=== PATIENT | female | born 1930 | race Caucasian/White ===

== ENCOUNTER 2017-01-26 23:22 | Emergency (ER) | payer MEDICARE ==
[~2017-01-26] VITALS: Ht 157.5 cm; Wt 72.7 kg
[~2017-01-26 23:22] MED LIST: ALPHAGAN5 ML OP; AUGMENTIN875TAB PO; BACLOFEN10 MG PO; CYANOCOBALAM1000 MCG IJ; CYANOCOBALAM1000 MCG IM; ESTER-C500 M1 OR; ESTRACE VAG0.1 MG/GM VA; GABAPENTIN100 MG PO; LORTAB 10-325 M1 TAB PO; MOBIC7.5 M1 PO; MULT VITAMI1 OR; NAPROSYN500 MG PO; VIT B12 SL; VITAMIN B-121000 MC1 IM; [UNRECOGNIZED DRUG - OTHER] PO
[2017-01-27] MEDS ORDERED: LORTAB 10-325 M1 TAB PO (01:57)
[2017-01-27 02:35] VITALS: BP 179/81
== END 2017-01-27 02:30 | disposition home or self-care (01) ==
LOC: ED 23:22
DX: S42.434A Nondisplaced fracture (avulsion) of lateral epicondyle of right humerus, initial encounter for closed fracture (principal); W01.0XXA Fall on same level from slipping, tripping and stumbling without subsequent striking against object, initial encounter; Y93.K1 Activity, walking an animal; Y92.007 Garden or yard of unspecified non-institutional (private) residence as the place of occurrence of the external cause

== ENCOUNTER 2019-12-09 04:21 | Observation (INO) | payer MEDICARE ==
[~2019-12-09] VITALS: Ht 162.6 cm; Wt 58.5 kg
--- NOTE | 2019-12-09 04:28 | NUR ---
PATIENT TO ROOM 13 VIA WHEELCHAIR. UNDRESSED INTO A GOWN. PLACED ON MONITOR. TRIAGE COMPLETED AT BEDSIDE. AWAITING MD VICKERS.
[2019-12-09] MEDS ORDERED: DONEPEZIL10 MG PO (04:51)
--- NOTE | 2019-12-09 04:51 | NUR ---
PT TOLD SAMY SHE ONLY TOOK VITAMINS. WHEN SAMY LEFT ROOM SHE SAID SHE TAKES A MEMORY PILL BUT NOT SURE WHICH ONE. PER MEDICAL HISTORY, PT PRESCRIBED ARICEPT. ADDED TO MED LIST.
--- NOTE | 2019-12-09 05:10 | NUR ---
PT'S BP DROPPED TO 169/86, DR HARGROVE INFORMED, CATAPRES HELD. PT STATES PAIN IS 2/10 PRIOR TO APPLYING NTG PASTE TO CHEST WALL. CALL RATLIFF IN REACH.
[2019-12-09 05:21] LABS: HEMATOCRIT 41.4 % (37.0-47.0); HEMOGLOBIN 14.2 g/dl (12.0-16.0); IMMATURE GRANULOCYTES 0.2 % (0.0-5.0); MEAN CELL VOLUME 93.9 fL CALC (80.0-100.0); MEAN CORPUSCULAR HGB 32.2 pG CALC (26.0-32.0); MEAN CORPUSCULAR HGB CONC 34.3 g/dL CAL (32.0-36.0); NEUT# 3.42 thou/uL (2.00-7.15); RED BLOOD COUNT 4.41 mill/uL (4.20-5.60); RED CELL DISTRI WIDTH 12.5 % (11.5-15.5)
[2019-12-09 05:34] LABS: ALBUMIN 4.2 g/dL (3.2-5.0); ALKALINE PHOSPHATASE 57 u/l (38-126); AMYLASE 63 u/l (30-110); ANION GAP 9 (6-22 (CALC)); BILIRUBIN, TOTAL 0.7 mg/dL (0.0-1.4); BUN 13 mg/dL (8-23); BUN/CREATININE RATIO 20 (12-20 (CALC)); CARBON DIOXIDE 29 mmol/l (22-30); CHLORIDE 97 mmol/l (95-108); CREATININE 0.7 mg/dL (0.5-1.0); GFR > 60 ML/MIN (>=60 (CALC)); GFR FOR AFR.AMER. > 60 ML/MIN (>=60 (CALC)); LIPASE 55 u/l (23-300); POTASSIUM 3.6 mmol/l (3.5-5.1); SGOT/AST 27 u/l (9-36); SODIUM 131 mmol/l (137-146); TOTAL PROTEIN 7.2 g/dL (6.3-8.2)
[2019-12-09 05:40] LABS: ACT PARTIAL THROMBO TIME 28.5 SECONDS (20.0-32.5); D-DIMER 0.6 mg/L (0.19-0.60)
[2019-12-09 05:46] LABS: MYOGLOBIN 38 ng/mL (0 - 62)
--- NOTE | 2019-12-09 06:10 | NUR ---
ROOM NUMBER RECEIVED , CALLED FLOOR TO GIVE REPORT, NURSE IN WITH PT.
--- NOTE | 2019-12-09 06:25 | NUR ---
CALLED FLOOR AGAIN TO GIVE REPORT. TOLD ONCE AGAIN NURSE IN ROOM CAN HE CALL BACK.
--- NOTE | 2019-12-09 06:34 | NUR ---
Admission Note Report Given to: PATRICIA MORA Transported by: X Wheelchair Stretcher Transported with: X Nurse Transporter Patent IV O2 X Heating Mechanic Location: ICU X [facility]
--- NOTE | 2019-12-09 06:42 | NUR ---
PER STAFF PT ARRIVED VIA STRETCHER WITH IV SITE AND TELE MONITOR IN PLACE.
--- NOTE | 2019-12-09 06:45 | NUR ---
WHEELED PT TO ROOM 273, DROPPED PT'S PAPERS OFF AT NURSES STATION WHERE MORGAN WAS SITTING. WHEELED PT INTO ROOM, NO SCALE THERE OR I WOULD HAVE OBTAINED WEIGHT. ASSISTED PT TO BED, SHOWED HER CALL RATLIFF AND HOW TO ADJUST BED. THEN PT STATES SHE HAD TO URINATE. ASSISTED PT TO BATHROOM AND INSTRUCTED PT TO PULL RED CORD WHEN DONE. WHEELED PAST NURSES STATION AND INFORMED MORGAN WHAT I DID AND THAT PT WAS IN BATHROOM..
[2019-12-09 06:50] VITALS: BP 168/82
--- NOTE | 2019-12-09 08:45 | NUR ---
ASSESSMENT IS COMPLETED: IV SITE IS FREE FROM REDNESS OR EDEMA. HR IS REG,PULSES ARE STRONG X4, ABD IS SOFT WITH ACTIVE BS. BREATH SOUNDS ARE CLEAR,BILATERALLY, TELE MONITOR IN PLACE. CONTINUE TO OSBERVE AND MONITOR.
[2019-12-09 10:37] VITALS: BP 129/74
--- NOTE | 2019-12-09 12:00 | NUR ---
PT IS RELAXING IN BED WITH NO DISTRESS NOTED. IV SITE IS FREE FROM REDNESS OR EDEMA.
[2019-12-09 15:24] VITALS: BP 135/81
--- NOTE | 2019-12-09 16:00 | NUR ---
PT IS RELAXING IN BED . NO DISTRESS NOTED. IV SITE IS FREE FROM REDNESS OR EDEMA. CONTINUE TO OBSERVE AND MONITOR.
[2019-12-09 19:44] VITALS: BP 141/77
--- NOTE | 2019-12-09 19:45 | NUR ---
PHYSICAL ASSESMENT COMPLETE. VS TAKEN BY PEDIATRIC DENTAL HYGIENIST @ 1944 ASSESSED, TELEMETRY READING FOR 1999 FROM ED PHARMACEUTICAL SALES REPRESENTATIVE ASSESSED. PT HEMODYNAMICALLY STABLE. PLAN OF CARE REVIEWED W/ PT. PT VERBALIZES UNDERSTANDING AND DENIES QUESTIONS @ THIS TIME. PT DENIES NEEDS @ THIS TIME. CALL RATLIFF WITHIN REACH, AGREES TO CALL PRN. ITEMS WITHIN REACH. BED LOCKED IN LOW POSITION W/ BEDRAILS UP X2. WILL CON'T TO MONITOR.
[2019-12-09 23:47] VITALS: BP 147/83
--- NOTE | 2019-12-10 00:30 | NUR ---
PT STATES HER IV IS VERY UNCOMFORTABLE AND KEEPING HER FROM SLEEPING. SHE REQUESTS IV BE REMOVED @ THIS TIME AND LEFT OUT BECAUSE ITS NOT IN USE FOR MEDICATION. PT AGREES TO ALLOW RE-INSERTION OF IV IF MEDICALLY NECESSARY. R AC IV site discontinued, cath intact. No edema , no redness, voices no discomfort.
--- NOTE | 2019-12-10 00:37 | NUR ---
PHYSICAL ASSESMENT COMPLETE. VS TAKEN BY HUMAN SERVICES SUPERVISOR @ 1944 ASSESSED, TELEMETRY READING FOR 1999 FROM ED TEST HOLE DRILLER ASSESSED. PT HEMODYNAMICALLY STABLE. PLAN OF CARE REVIEWED W/ PT. PT VERBALIZES UNDERSTANDING AND DENIES QUESTIONS @ THIS TIME. PT DENIES NEEDS @ THIS TIME. CALL RATLIFF WITHIN REACH, AGREES TO CALL PRN. ITEMS WITHIN REACH. BED LOCKED IN LOW POSITION W/ BEDRAILS UP X2. WILL CON'T TO MONITOR.
[2019-12-10 03:52] VITALS: BP 137/80
[2019-12-10 04:48] LABS: CHOLESTEROL HDL RATIO 3.2 (<4.4 (CALC))
--- NOTE | 2019-12-10 05:28 | NUR ---
PHYSICAL ASSESMENT REMAINS UNCHANGED FROM START OF SHIFT. VS TAKEN BY WEAVER WIRE LOOM @ 0352 ASSESSED. TELEMETRY READING REPORTED ED RAIL CAR DRIVER ASSESSED. PT REMAINS HEMODYNAMICALLY STABLE. RESTING IN BED COMFORTABLY @ THIS TIME. DENIES NEEDS @ THIS TIME. ITEMS WITHIN REACH. BED REMAINS LOCKED IN LOW POSITION W/ BED RAILS UPX2. CALL RATLIFF REMAINS WITHIN REACH. PT AGREES TO CALL PRN.
[2019-12-10 08:14] VITALS: BP 141/82
--- NOTE | 2019-12-10 08:14 | NUR ---
PT AMBULATING IN ROOM, NO SIGNS OF DISTRESS NOTED, RESP EVEN AND UNLABORED. NO IV AT THIS TIME, PT REMOVED TELE. PT EAGER TO BE DISCHARGED. PT DENIES ANY CP AT THIS TIME. ASSESSMENT COMPLETED, CALL LIGHT IN REACH,CONTINUE TO MONITOR.
--- NOTE | 2019-12-10 10:46 | NUR ---
DISCUSSED DISCHARGE INSTRUCTIONS, PT VERBALIZED UNDERSTANDING. PAPERWORK SIGNED. DAUGHTER ON HER WAY TO PICK PT UP.
--- NOTE | 2019-12-10 11:03 | NUR ---
Discharge instructions given. Patient verbalizes understanding of same. Discharged in stable condition via Ambulatory to Home with family. All belongings sent with pt.
== END 2019-12-10 11:03 | disposition home or self-care (01) ==
LOC: ED 04:21 → ED-I 05:54 → ED 06:08 → MS2 06:08
PROVIDERS: Family Medicine; ADMIT Internal Medicine; ATTEND Internal Medicine
DX: R07.9 Chest pain, unspecified (principal); K21.9 Gastro-esophageal reflux disease without esophagitis; R03.0 Elevated blood-pressure reading, without diagnosis of hypertension; G62.9 Polyneuropathy, unspecified; Z20.828 Contact with and (suspected) exposure to other viral communicable diseases; R06.02 Shortness of breath
CPT/HCPCS: G0378; J1650

== ENCOUNTER 2020-04-30 14:50 | Emergency (ER) | payer MEDICARE ==
[~2020-04-30] VITALS: Ht 162.6 cm; Wt 51.0 kg
[~2020-04-30 14:50] MED LIST changes: +DONEPEZIL10 MG PO
[2020-04-30 15:53] LABS: HEMATOCRIT 39.1 % (37.0-47.0); HEMOGLOBIN 12.9 g/dl (12.0-16.0); IMMATURE GRANULOCYTES 0.2 % (0.0-5.0); MEAN CELL VOLUME 96.3 fL CALC (80.0-100.0); MEAN CORPUSCULAR HGB 31.8 pG CALC (26.0-32.0); NEUT# 3.82 thou/uL (2.00-7.15); RED BLOOD COUNT 4.06 mill/uL (4.20-5.60); RED CELL DISTRI WIDTH 12.3 % (11.5-15.5)
[2020-04-30 16:12] LABS: ALBUMIN 3.8 g/dL (3.2-5.0); ALKALINE PHOSPHATASE 50 u/l (38-126); ANION GAP 8 (6-22 (CALC)); BUN 13 mg/dL (8-23); BUN/CREATININE RATIO 17 (12-20 (CALC)); CARBON DIOXIDE 30 mmol/l (22-30); CHLORIDE 98 mmol/l (95-108); CREATININE 0.8 mg/dL (0.5-1.0); GFR > 60 ML/MIN (>=60 (CALC)); GFR FOR AFR.AMER. > 60 ML/MIN (>=60 (CALC)); LIPASE 41 u/l (23-300); POTASSIUM 3.9 mmol/l (3.5-5.1); SGOT/AST 23 u/l (9-36); SODIUM 133 mmol/l (137-146); TOTAL PROTEIN 6.2 g/dL (6.3-8.2)
[2020-04-30 16:13] LABS: BILIRUBIN, TOTAL 0.3 mg/dL (0.0-1.4)
[2020-04-30 18:06] LABS: URINE BILIRUBIN - DIPSTICK NEGATIVE (NEGATIVE); URINE BLOOD DIPSTICK NEGATIVE (NEGATIVE); URINE COLOR YELLOW; URINE GLUCOSE - DIPSTICK NEGATIVE (NEGATIVE); URINE KETONE NEGATIVE (NEGATIVE); URINE LEUK ESTERASE NEGATIVE (NEGATIVE); URINE NITRITE - DIPSTICK NEGATIVE (Negative); URINE PH 7.5 (4.5-8.0); URINE PROTEIN - DIPSTICK NEGATIVE (NEG-TRACE); URINE SPECIFIC GRAVITY 1.015; URINE UROBILINOGEN - DIPSTICK 0.2 E.U./dL (0.2)
[2020-04-30 18:40] VITALS: BP 179/86
== END 2020-04-30 18:40 | disposition home or self-care (01) ==
LOC: ED 14:50
DX: R10.32 Left lower quadrant pain (principal); R19.04 Left lower quadrant abdominal swelling, mass and lump
CPT/HCPCS: Q9967

== ENCOUNTER 2022-04-19 12:22 | Emergency (ER) | payer MEDICARE ==
[2022-04-19] VITALS (7 sets, daily range): BP systolic 156–168; BP diastolic 77–87
[~2022-04-19] VITALS: Ht 167.6 cm; Wt 58.0 kg
== END 2022-04-19 15:27 | disposition home or self-care (01) ==
LOC: ED 12:22
PROC: 2W3QX1Z Immobilization of Right Lower Leg using Splint (ICD-10-PCS; principal; 2022-04-19)
DX: S82.431A Displaced oblique fracture of shaft of right fibula, initial encounter for closed fracture (principal); W01.0XXA Fall on same level from slipping, tripping and stumbling without subsequent striking against object, initial encounter; Y92.009 Unspecified place in unspecified non-institutional (private) residence as the place of occurrence of the external cause